=== PATIENT | female | born 1990 | race Caucasian/White ===

== ENCOUNTER 2024-02-11 13:23 | Emergency (ER) | payer BC ==
[~2024-02-11] VITALS: Ht 160 cm; Wt 65.8 kg
[2024-02-11] MEDS: ACETAMINOPHEN ES 500 MG TABLET PO ONE (16:10)
[2024-02-11] MEDS ORDERED: diphenhydrAMINE HCL 50 MG/ML VIAL ONE (16:15)
[2024-02-11] MEDS: IV NS 0.9% 1,000 ML BAG IV ONE (16:15)
[2024-02-11 16:16] LABS: PREGNANCY TEST URINE QUAL NEGATIVE (NEGATIVE)
[2024-02-11] MEDS ORDERED: ACETAMINOPHEN ES 500 MG TABLET ONE (16:16)
[2024-02-11] MEDS ORDERED: PROCHLORPERAZINE EDISYLATE 10 MG/2 ML VIAL ONE (16:16)
[2024-02-11] MEDS: diphenhydrAMINE HCL 50 MG/ML VIAL IV ONE (16:20)
[2024-02-11] MEDS: PROCHLORPERAZINE EDISYLATE 10 MG/2 ML VIAL IVP ONE (16:25)
[2024-02-11] MEDS ORDERED: SUMA100T16 PO (18:03)
[2024-02-11 18:12] VITALS: BP 133/71; TEMP 98.4; O2SAT 98
== END 2024-02-11 18:15 | disposition home or self-care (01) ==
LOC: ER 13:23
DX: G43.909 Migraine, unspecified, not intractable, without status migrainosus (principal); R20.2 Paresthesia of skin
CPT/HCPCS: 99285; 96374; 70450; 96361; 96375; 84703; J0780; J1200; J7030